=== PATIENT | female | born 1965 | race Two or more races ===

== ENCOUNTER 2020-09-12 18:36 | Emergency (ER) | payer BC, OTHER ==
[~2020-09-12] VITALS: Ht 172.7 cm; Wt 61.5 kg
[2020-09-12 18:48] VITALS: BP 135/75
--- NOTE | 2020-09-12 20:24 | NUR ---
pt to room from lobby at this time, assumed care of pt
== END 2020-09-12 22:25 | disposition home or self-care (01) ==
LOC: ED 20:51
DX: K11.21 Acute sialoadenitis (principal); M19.90 Unspecified osteoarthritis, unspecified site; F17.200 Nicotine dependence, unspecified, uncomplicated
CPT/HCPCS: 87081; 87880; 99283